=== PATIENT | female | born 1985 | race Caucasian/White ===

== ENCOUNTER → 2017-07-20 | Day surgery (SDC) | payer OTHER ==
[~2017-07-20] MED LIST: KETOROLAC TROMETHAMINE 30 MG/ML (IVP) VIAL IV PUSH ONE; MIDAZOLAM HCL 2 MG/2 ML VIAL ONE; ONDANSETRON HCL 4 MG/2 ML VIAL IV PUSH ONE; PROPOFOL 200 MG/20 ML AMP IV ONE; ceFAZolin INJ 1,000 MG VIAL ONE
--- NOTE | 2017-07-21 15:04 | MP ---
cc: BRANDON VARNER M.D. DATE OF SURGERY: 07/20/2017 at [facility]. PREOPERATIVE DIAGNOSIS Endometrial polyp. POSTOPERATIVE DIAGNOSIS Endometrial polyp. PROCEDURE: Hysteroscopy, resection of endometrial polyp. SURGEON Brandon Varner MD. ANESTHESIA: General. ESTIMATED BLOOD LOSS: 30 cc COMPLICATIONS: None. FINDINGS: The patient had a unremarkable endocervical canal. The uterus had a approximately 1 x 2 cm finger-like benign appearing endometrial polyp coming off the posterior wall extending to the top of the endocervical canal. The remainder of the endometrial cavity is unremarkable. DESCRIPTION OF PROCEDURE The patient was brought into the operating room and following general anesthesia was placed in the dorsolithotomy position. Her vagina, abdomen and perineum were prepped and draped. The cervix was grasped with single-tooth tenaculum and dilated to allow passage of the hysteroscope. The findings were as noted above. The MyoSure device was brought to placed and endometrial polyp was easily resected with the MyoSure device. The tissue was sent to pathology. Bleeding was scant throughout the entire procedure, with no other pathology present all instruments removed and the patient taken to the Recovery Room in good condition, with counts correct. She will be discharged home when stable and alert, She will be followed up in one week in our office. Discharge medication is Percocet. She is given instructions on physical activity and instructed to resume her regular diet as tolerated. Brandon Varner MD [facility]/ /10:18 AM /2:57 PM
== END | disposition home or self-care (01) ==
LOC: ESDC 08:47
PROVIDERS: ATTEND Obstetrics & Gynecology
DX: N84.0 Polyp of corpus uteri (principal)
CPT/HCPCS: 00952; 58558; 88305; J0690; J1885; J2250; J2405; J3010